=== PATIENT | male | born 1990 | race Caucasian/White ===

== ENCOUNTER 2021-06-22 14:08 | Emergency (ER) | payer OTHER, SELFPAY ==
[2021-06-22 14:10] VITALS: BP 156/85; PULSE 90; RESP 18; TEMP 36.2; O2SAT 100; BMI 42.5
--- NOTE | 2021-06-22 15:43 | EDS_ITS ---
HPI History of Present Illness Chief Complaint: Burn Detail of Chief Complaint: Injury to left ear Narrative Narrative: Patient presents to the emergency department with complaint of left ear pain and decreased hearing. Patient states that approximately 1 PM he was cutting steel when a piece of hot steel landed in his left ear. Patient had pain immediately. He complains of decreased hearing. Patient denies any other complaints. PFSH PFSH Home Medications ciprofloxacin-dexamethasone [Ciprodex] 4 drp EACH EAR BID 7 Days ml 06/22/21 [Rx Last Taken Unknown] Allergy/AdvReac Type Severity Reaction Status Date / Time amoxicillin Allergy Other Verified 06/22/21 14:09 Social History Smoking Status: Unknown if ever smoked ROS ROS ED Constitutional Constitutional ED: Reports systems reviewed and no addt'l complaints, except as documented; Denies body ache(s), change in weight or chills Eyes Eyes: Denies acute decrease in peripheral vision, change in vision, double vision or loss of vision ENT ENT ED: Reports none and ear pain; Denies lip swelling, loss taste/smell, neck pain, otalgia or sore throat Cardiovascular Cardiovascular: Reports none; Denies abdominal pain, chest pain with activity, leg edema, lightheadedness, palpitations, rapid heart rate or syncope Respiratory/Chest Respiratory/Chest: Reports none; Denies change in mental status, dry cough, dyspnea, hemoptysis, shortness of breath at rest or shortness of breath with exertion Gastrointestinal Gastrointestinal: Reports none; Denies abdominal pain, change in stool character, diarrhea, hematemesis, hematochezia, melena, rectal bleeding or vomiting Genitourinary Genitourinary ED: Reports none; Denies abdominal discomfort, anuria, dysuria, genital pain or polyuria Musculoskeletal Musculoskeletal: Reports none; Denies arthralgias, back pain, difficulty walking, extremity pain, muscle weakness or myalgias Integumentary Reports none; Denies abscess or rash Neurologic Neurologic: Reports none; Denies abnormal gait, confusion, focal weakness, frequent falls, headache(s), loss of vision, numbness, paresthesias, radicular p ain, vertigo or weakness Psychiatric Psychiatric: Reports systems reviewed and no addt'l complaints, except as documented and none; Denies behavioral changes, confusion, difficulty concentrating, hallucinations, suicidal ideation, tactile hallucinations or visual hallucinations Endocrine Endocrinology: Denies none, cold intolerance, excessive sweating, fatigue or heat intolerance Hematologic/Lymphatic Hematologic/Lymphatic: Reports none; Denies anemia, easy bleeding or easy bruising Allergic/Immunologic Allergic/Immunologic ED: Denies as per HPI, none, lip swelling, mouth swelling, throat swelling, tongue swelling or hives EXAM Physical Exam Const Vital Signs: 06/22/21 14:10 Temperature 97.1 F L Temperature Source Temporal Pulse Rate 90 Respiratory Rate 18 Blood Pressure 156/85 H Blood Pressure Mean 108 Pulse Ox 100 Oxygen Delivery Method Room Air Positive well nourished and well developed General Appearance ED: well developed and NAD HEENT Reports TM's clear and moist mucous membranes HEENT Narrative: Evaluation of the left ear reveals no obvious foreign bodies in the ear canal. I am able to see the superior half of the ear drum and it appears to be intact. There are some faint erythema to the lateral aspect of the ear canal. No bleeding noted. normocephalic and atraumatic; Negative for trauma or tenderness Tympanic Membrane ED: Yes TM's clear Eyes PERRL and EOMs intact bilaterally General Eye ED: Negative for pale conjunctiva or scleral icterus Neck no lymphadenopathy, supple and no JVD General: Negative for tenderness Chest Wall inspection of chest normal and palpation of chest normal Chest: Negative for tenderness Resp normal respiratory effort and clear to auscultation bilaterally Effort and Inspection: Negative for respiratory distress or pain with movement Auscultation: Negative for rhonchi, wheezes or diminished lung sounds Cardio regular rate, regular rhythm, S1 normal heart sound, S2 normal heart sound and no murmurs Peripheral Pulses: pulses 2+ throughout GI normal to inspection, nondistended, normoactive bowel sounds, soft to palpation, non-tender, non-distended and no masses Back/Spine no CVA tenderness and no thoracic nor lumbar tenderness Extremity normal to inspection General Extremety ED: Negative for edema General Extremity: Negative for edema Neuro oriented x3, CN's II-XII intact bilaterally, no sensory deficits noted and gait normal Sensorium / Orientation: awake, alert, oriented to person, oriented to place and oriented to time Motor Exam: strength 5/5 throughout and strength abnormal Psych mental status grossly normal Skin no rashes or lesions noted and no wounds MDM MDM MDM Narrative Medical decision making narrative: Case discussed with ear nose and throat physician on-call Dr. Wesley Elias who recommended Ciprodex drops and follow-up with ear nose and throat physician next week. Discharge Plan Triage Chief Complaint: Burn ED Provider: Blank Alonzo Dx/Rx/DC Orders Clinical Impression: Burn erythema of left ear Instructions: ED Burn, First-Degree Prescriptions: New ciprofloxacin-dexamethasone [Ciprodex] 0.3-0.1 % drops,suspension 4 drp EACH EAR BID 7 Days RF: 0 Primary Care Provider: NOT,DEFINED Referrals: Drew Valenzuela MD [STAFF PHYSICIAN] - 5-7 Days NOT,DEFINED [Primary Care Provider] - Disposition Disposition: Home, Self Care
== END 2021-06-22 15:59 | disposition home or self-care (01) ==
LOC: ED 15:52
PROVIDERS: Emergency Provider Emergency Medicine
DX: T20.112A Burn of first degree of left ear [any part, except ear drum], initial encounter (principal); H91.92 Unspecified hearing loss, left ear; X19.XXXA Contact with other heat and hot substances, initial encounter; Y93.9 Activity, unspecified; Y92.9 Unspecified place or not applicable; Y99.9 Unspecified external cause status
CPT/HCPCS: 99282

== ENCOUNTER 2021-10-15 08:39 | Day surgery (SDC) | payer OTHER, SELFPAY ==
[2021-10-15] VITALS (7 sets, daily range): BP systolic 125–142; BP diastolic 76–83; PULSE 71–88; RESP 16; TEMP 36.2–36.9; O2SAT 96–99; BMI 44.6
--- NOTE | 2021-10-15 09:16 | PCM.DC.SUM ---
Providers Primary Care Physician: Dr. Earl Zuniga MD Reason For Visit: L TYMPANOPLASTY CANAL PLASTY,HARV TRAGET CART Medications at Discharge Home Medications NK 10/08/21 Weight / BMI Weight Weight: 166.6 kg Body Mass Index (BMI) 44.6 ABG / Lab / Microbiology Data Microbiology: Microbiology 10/09/21 10:00 Nasal Secretion SARS-CoV-2 Antigen (Rapid) - Final D/C Instructions Discharge Diet: No restrictions May shower in (days): 2 Additional Dressing/Incision Instructions: Remove dressing and discard on 10/16/21. Replace cotton ball as needed. Meaningful Use Info Meaningful Use Diagnoses (Choose all that apply): None applicable Discharge Plan Admission Attending Provider: Dick Perez Primary Care Provider: Earl Zuniga Discharge Orders/Prescriptions Prescriptions: No Action NK RF: 0
[2021-10-15] MEDS: Lactated Ringers 1,000 ML 15 ML IV ×2 (10:00→12:00)
[2021-10-15] MEDS: Lidocaine 1%/Epi 1:200 (30ml) 30 ML AMPUL (10:42)
[2021-10-15] MEDS: Epinephrine (1 mg/ml) 1 MG/ML VIAL (10:58)
[2021-10-15] MEDS: Ciprofloxacin 0.3% 2.5ml Bottle 1 DRP EACH EYE (11:44)
[2021-10-15] MEDS: BACITRACIN/POLYMYXIN B 15 GM Tube 1 APPLIC (12:01)
--- NOTE | 2021-10-15 13:09 | OP.PCM_ITS ---
Report of Operation Date of Procedure: 10/15/21 Pre-Operative Diagnosis: Left tympanic membrane perforation left conductive hearing loss Post-Operative Diagnosis: same Surgery/Procedure Performed:: Left tympanoplasty,canalplasty [place] tragal cartilage graft Surgeon: Dick Perez Type of Anesthesia: General Anesthesiologist: Monico Jones Estimated Blood Loss (mL): minimal Description of Procedure: Patient was taken to the operating room on 10/15/2021.. He was placed in supine position on the operating table. He was given sufficient general endotracheal anesthesia. The table was turned 90 degrees in a clockwise fashion. The left ear was prepped and draped sterilely. 1% lidocaine with epinephrine was injected into the tragus and meatus and post auricular area. Next a speculum turned patient's right external auditory canal and the external auditory canal skin was injected with 1% lidocaine with epinephrine. Next I made an incision at the edge of the tragal cartilage with a 15 blade. A plane was established sharply on both the medial and lateral aspects of the tragal cartilage. The tragal cartilage was then harvested sharply with scissors. I then irrigated the tragal harvest site with saline. Hemostasis was achieved with bipolar cautery. The incision was then closed with interrupted 6-0 fast- absorbing gut. I placed a quilting suture to close the space as well. Next I made a post auricular incision.hemostasis was achieved with monopolar cautery. I then made a standard T-shaped incision onto the periosteum and the periosteum was elevated with a Lempert elevator. I elevated the postauricular skin posteriorly. Vascular strip incisions were then made posteriorly and the vascular strip was elevated and retracted out of the external auditory canal with self retaining retractors. The tympanomeatal flap was elevated. The annulus was cut inferiorly. I rimmed the perforation with a [place] pick. The rim was removed with a cup forceps. I then made an incisions overlying the anterior external bony canal overhang. The skin was elevated sharply medially. Once the bone was exposed I used 3 and 2 mm minoo burs to perform canal plasty. This provided adequate visualization of the anterior annulus. Next the middle ear was filled with Cipro impregnated Gelfoam. The tragal cartilage was cut to the bess ropriate size and placed in underlay fashion beneath the perforation. The tympanomeatal flap was redraped. I then made sure that the cartilage was tucked circumferentially underneath the perforation. The vascular strip was then placed back into the canal. The periosteum was closed with interrupted 3-0 Vicryl. The external auditory canal was filled with antibiotic ointment. The skin was closed with interrupted 4-0 subcuticular Vicryl. Benzoin and Steri-Strips were then applied. A Camille dressing was then applied. The patient then awoken about the recovery room in stable condition. Blood loss minimal,replacement none,sponge needle and instrument counts correct were correct at the end of the procedure.
[2021-10-15] MEDS: HYDROcodone Bitartrate/Apap 5/325 Tablet PO (14:42)
== END 2021-10-15 23:59 | disposition home or self-care (01) ==
LOC: SDC 08:41 → AC 08:41
PROVIDERS: PCP Family Medicine; Referring Provider Otolaryngology; Visit Provider Otolaryngology
PROC: (CPT 69631; principal; 2021-10-15 09:45)
DX: S09.22XA Traumatic rupture of left ear drum, initial encounter (principal); H90.12 Conductive hearing loss, unilateral, left ear, with unrestricted hearing on the contralateral side; H72.02 Central perforation of tympanic membrane, left ear; Z20.822 Contact with and (suspected) exposure to COVID-19
CPT/HCPCS: 69631; 21235; 00120; 87426; C9803; J7120; J2405